=== PATIENT | female | born 1960 | race Hispanic/Latino ===

== ENCOUNTER 2020-07-28 07:13 | Day surgery (SDC) | payer OTHER ==
[2020-07-28] MEDS ORDERED: Ringers Lactate 1,000 ML IV ONE (07:38)
[2020-07-28] MEDS ORDERED: CEFAZOLIN/SWI 1gm 1 GM/10 ML SYR ONE (07:38)
[2020-07-28] MEDS ORDERED: BUPIVACA 0.25%/EPI 0.0005% MDV 50 ML VIAL ONE (08:48)
[2020-07-28] MEDS ORDERED: LIDOCAINE 1% MPF 2 ML AMPULE ONE (10:24)
[2020-07-28] MEDS ORDERED: propofoL 200 MG/20 ML VIAL IV ONE (10:24)
[2020-07-28] MEDS ORDERED: ONDANSETRON 4 MG/2 ML VIAL ONE (10:24)
[2020-07-28] MEDS ORDERED: MIDAZOLAM HCL 2 MG/2 ML INJ ONE (10:24)
[2020-07-28] MEDS ORDERED: FENTANYL CITR 100 MCG/2 ML ONE (10:24)
[2020-07-28] MEDS ORDERED: dexAMETHasone 10 MG/ML VIAL ONE (11:33)
--- NOTE | 2020-07-28 12:28 | P.OP ---
Preoperative diagnosis: RIGHT Breast Mass Postoperative diagnosis: RIGHT Breast Mass Primary procedure: Excisional Biopsy of RIGHT Breast Mass Anesthesia: GETA + Local Estimated blood loss: <5cc Specimen: breast tissue with clip and needle loc Findings: Breast mass confirmed with x-ray Complications: None Transferred to: Recovery Room Condition: Good
[2020-07-28] MEDS ORDERED: KETOROLAC 30 MG/ML INJ ONE (12:43)
--- NOTE | 2020-07-28 12:56 | OP ---
Date of Procedure: 07/28/2020 Surgeon: Aung Romero MD, Preoperative Diagnosis: Right breast mass. Postoperative Diagnosis: Right breast mass. Procedure: Excisional biopsy of right breast mass. Anesthesia: General endotracheal plus local with 0.25% Marcaine with epinephrine. Estimated Blood Loss: Less than 5 mL. Specimen: Breast tissue with clip and needle from needle localization. Findings: Breast mass confirmed with x-ray intraoperatively. Specimen was complete. Complications: None. Disposition: The patient was transferred to recovery room in good condition. Procedure In Detail: After informed consent was obtained, the patient was brought to the operating r oom, prepped and draped in the usual sterile fashion. After adequate anesthesia was achieved, a line ar incision was made overlying a needle localized insertion point, which was placed by radiologist is morning prior to surgical intervention. At this point, I confirmed with preoperative imaging and spoke with Dr. Daniel to help localize the area to optimize the specimen. At this point, I dissecte d down using electrocautery after incising the skin with a 15 blade down to subcutaneous tissues. I dissected down circumferentially to include the specimen with approximately 2 cm rim margin around th e clip area, which was found to be inferior at the 12 o'clock position. At this point, the specimen was removed in its entirety using meticulous hemostasis. The specimen was marked with short stitch s uperior, long lateral and the deep margin was inked at this point and sent off for examination under Faxitron/x-ray mammography. The specimen confirmed by Dr. Daniel and I spoke saying that the clip a nd the specimen were complete without any additional need for additional margins. The wound was then copiously irrigated and closed with interrupted 3-0 Vicryl suture and the skin was closed with 4-0 M onocryl in a running fashion. Dermabond placed over top. The patient tolerated the procedure well w ithout evidence of complication and was transferred to PACU in good condition. All counts were corre ct at the end of the case. TK/MODL Voice ID: [id number] Report ID: [id number]
--- NOTE | 2020-07-28 13:19 | RAD REPORT ---
EXAM DESCRIPTION: [facility] - MAMMO-[facility] - 07/28/2020 10:14 am CLINICAL HISTORY: R 92 COMPARISON: 3D SCR [facility] BILAT W/CAD dated 04/23/2020 TECHNIQUE: Patient presents for mammogram guided needle localization. Patient's March 2020 imagin g showed suspicious microcalcifications in the 12- 1 o'clock right breast. During the interval the pa tient underwent stereotactic core biopsy at an outside facility. Post biopsy clip was placed at that time. Consent for the procedure was obtained as part of the overall surgical consent. Preliminary CC and LM views shows the suspicious calcifications to have been fully resected. There is a biopsy clip presen t positioned at the site of the microcalcifications. No migration of the clip. Mammogram guided localization procedure was then performed. Preliminary imaging identified the biopsy clip. From a superior approach the upper right breast tissue was prepped and draped in the usual brad rile fashion. Skin and deeper tissues were anesthetized with 1% lidocaine. A [place] mammo lock needle was advanced. Tip was placed within needle tip approximately 6-8 mm deep to the clip. The hookwire wa s set. Lateral imaging confirmed adequate positioning of the localization. Patient tolerated procedure well without complications and was transferred to the surgical holding ar pending excisional biopsy. IMPRESSION: Successful mammogram guided needle localization of stereotactic biopsy clip. The suspicious microcalcifications or fully resected at the time of the stereotactic biopsy. Biopsy c lip remained in position at the site of the prior calcifications.
--- NOTE | 2020-07-28 13:32 | RAD REPORT ---
EXAM DESCRIPTION: [facility] BREAST T[facility] - 07/28/2020 1:21 pm FINDINGS: Specimen mammogram images show the post stereotactic clip to be present in the specimen. Needle and hookwire are still present in the specimen. As detailed on the needle localization procedu re the suspicious microcalcifications were removed at the time of the outside stereotactic biopsy pro cedure. The post biopsy clip was at the site of microcalcifications.
[2020-07-28 13:43] VITALS: BP 153/82; TEMP 96.3; O2SAT 97
[2020-07-28] MEDS ORDERED: HYDROCODONE/APAP 7.5/325 MG TAB ONE (13:52)
== END 2020-07-28 14:13 | disposition home or self-care (01) ==
LOC: RAD 07:13
PROVIDERS: ATTEND Surgery
PROC: 0HBT0ZX Excision of Right Breast, Open Approach, Diagnostic (ICD-10-PCS; principal; 2020-07-28 10:30)
DX: N60.91 Unspecified benign mammary dysplasia of right breast (principal); N62 Hypertrophy of breast; Z20.822 Contact with and (suspected) exposure to COVID-19
CPT/HCPCS: 88305; 76098; 19282; 19101; 19283; U0002; J2704; J2250; J3010; J1100; J2001; J0690; J7120; J2405; 88307